=== PATIENT | male | born 1945 | race Caucasian/White ===

== ENCOUNTER → 2023-04-07 11:26 | Outpatient (REF) | payer MEDICARE, BC, SELFPAY ==
[2023-04-07 09:43] LABS: % Basophils 0.2 % (0-2); % Eosinophils 1.3 % (0-6); % Immature Granulocytes 0.2 % (0-0.5); % Lymphocytes 17.3 % (20.5-51.1); % Monocytes 9.1 % (1.7-9.3); % Neutrophils 71.9 % (42.2-75.2); Absolute Eosinophils 0.1 10^3/uL (0-0.7); Absolute Lymphocytes 0.9 10^3/uL (1.2-3.4); Absolute Monocytes 0.5 10^3/uL (0.1-0.6); Absolute Neutrophils 3.7 10^3/uL (1.4-6.5); Hematocrit 46.2 % (39.0-52.0); Hemoglobin 16.4 g/dL (13.0-18.0); Mean Corp Hgb Conc. 35.5 g/dL (33.0-37.0); Mean Corpuscular Hgb 34.1 pg (27.0-31.0); Mean Platelet Volume 10.9 fL (7.4-10.4); Nucleated Red Blood Cells % 0 % (-); Platelet Count 112 10^3/uL (130-400); Red Blood Cell Count 4.81 10^6/uL (4.70-6.10); White Blood Cell Count 5.2 10^3/uL (4.8-10.8)
[2023-04-07 09:56] LABS: ALT (SGPT) 30 U/L (0-50); AST (SGOT) 33 U/L (17-59); Albumin 4.2 g/dl (3.5-5.0); Alkaline Phosphatase 85 U/L (38-126); Blood Urea Nitrogen 21 mg/dl (9-20); Calcium 9.4 mg/dl (8.4-10.2); Carbon Dioxide 30 mmol/L (22-30); Chloride 101 mmol/L (98-107); Glucose 110 mg/dl (70-99); Potassium 3.7 mmol/L (3.5-5.1); Sodium 135 mmol/L (135-145); Total Protein 6.4 g/dl (6.3-8.2); eGFR > 60.00
[2023-04-07 16:24] LABS: IgG 941 mg/dl (700-1600); IgM 32 mg/dl (40-230)
[2023-04-10 02:47] LABS: IgA 26 mg/dL (68-408)
== END ==
LOC: OIDL 11:26
PROVIDERS: ATTENDING PHYSICIAN Nurse Practitioner Adult Health
DX: D69.6 Thrombocytopenia, unspecified (principal)
CPT/HCPCS: 80053; 82784; 85025

== ENCOUNTER → 2023-05-12 15:58 | Outpatient (REF) | payer MEDICARE, BC, SELFPAY ==
[2023-05-12 09:40] LABS: % Basophils 0.2 % (0-2); % Eosinophils 1.6 % (0-6); % Immature Granulocytes 0.2 % (0-0.5); % Monocytes 9.5 % (1.7-9.3); % Neutrophils 67.5 % (42.2-75.2); Absolute Eosinophils 0.1 10^3/uL (0-0.7); Absolute Lymphocytes 0.9 10^3/uL (1.2-3.4); Absolute Monocytes 0.4 10^3/uL (0.1-0.6); Hematocrit 46.6 % (39.0-52.0); Hemoglobin 16.3 g/dL (13.0-18.0); Mean Corpuscular Volume 94.3 fL (80.0-94.0); Mean Platelet Volume 10.3 fL (7.4-10.4); Nucleated Red Blood Cells % 0 % (-); Platelet Count 116 10^3/uL (130-400); Red Blood Cell Count 4.94 10^6/uL (4.70-6.10); Red Cell Dist. Width 13.7 % (11.5-14.5); White Blood Cell Count 4.4 10^3/uL (4.8-10.8)
[2023-05-12 09:58] LABS: ALT (SGPT) 33 U/L (0-50); AST (SGOT) 36 U/L (17-59); Albumin 4.6 g/dl (3.5-5.0); Alkaline Phosphatase 76 U/L (38-126); Blood Urea Nitrogen 19 mg/dl (9-20); Calcium 9.9 mg/dl (8.4-10.2); Carbon Dioxide 30 mmol/L (22-30); Chloride 97 mmol/L (98-107); Glucose 124 mg/dl (70-99); Potassium 3.6 mmol/L (3.5-5.1); Sodium 138 mmol/L (135-145); Total Bilirubin 2.9 mg/dl (0.2-1.3); Total Protein 6.7 g/dl (6.3-8.2); eGFR > 60.00
[2023-05-12 10:08] LABS: IgG 911 mg/dl (700-1600)
[2023-05-15 03:22] LABS: IgA 27 mg/dL (68-408); IgM 30 mg/dL (35-263)
== END ==
LOC: OIDL 15:58
PROVIDERS: ATTENDING PHYSICIAN Internal Medicine Hematology & Oncology
DX: D69.6 Thrombocytopenia, unspecified (principal)
CPT/HCPCS: 80053; 82784; 85025

== ENCOUNTER → 2023-06-04 13:11 | Outpatient (REF) | payer MEDICARE, BC, SELFPAY ==
[2023-06-04 16:26] LABS: % Basophils 0.2 % (0-2); % Eosinophils 1.5 % (0-6); % Immature Granulocytes 0.2 % (0-0.5); % Monocytes 11.9 % (1.7-9.3); % Neutrophils 73.2 % (42.2-75.2); Absolute Eosinophils 0.1 10^3/uL (0-0.7); Absolute Lymphocytes 0.7 10^3/uL (1.2-3.4); Absolute Monocytes 0.6 10^3/uL (0.1-0.6); Absolute Neutrophils 3.9 10^3/uL (1.4-6.5); Hematocrit 43.7 % (39.0-52.0); Hemoglobin 15.4 g/dL (13.0-18.0); Mean Corp Hgb Conc. 35.2 g/dL (33.0-37.0); Mean Corpuscular Hgb 33.9 pg (27.0-31.0); Mean Corpuscular Volume 96.3 fL (80.0-94.0); Mean Platelet Volume 10.8 fL (7.4-10.4); Nucleated Red Blood Cells % 0 % (-); Platelet Count 108 10^3/uL (130-400); Red Blood Cell Count 4.54 10^6/uL (4.70-6.10); Red Cell Dist. Width 13.3 % (11.5-14.5); White Blood Cell Count 5.3 10^3/uL (4.8-10.8)
[2023-06-04 16:28] LABS: ALT (SGPT) 32 U/L (0-50); AST (SGOT) 37 U/L (17-59); Albumin 4.5 g/dl (3.5-5.0); Alkaline Phosphatase 67 U/L (38-126); Blood Urea Nitrogen 16 mg/dl (9-20); Calcium 9.9 mg/dl (8.4-10.2); Carbon Dioxide 27 mmol/L (22-30); Chloride 99 mmol/L (98-107); Glucose 100 mg/dl (70-99); Potassium 4.2 mmol/L (3.5-5.1); Sodium 133 mmol/L (135-145); Total Bilirubin 2.4 mg/dl (0.2-1.3); Total Protein 6.9 g/dl (6.3-8.2); eGFR > 60.00
[2023-06-04 23:45] LABS: IgG 1052 mg/dl (700-1600)
[2023-06-05 00:19] LABS: IgA < 50 mg/dl (70-400); IgM 26 mg/dl (40-230)
== END ==
LOC: HWLAB 13:11
PROVIDERS: ATTENDING PHYSICIAN Nurse Practitioner Adult Health; FAMILY PHYSICIAN Nurse Practitioner Family
DX: D69.6 Thrombocytopenia, unspecified (principal); C83.07 Small cell B-cell lymphoma, spleen; R16.2 Hepatomegaly with splenomegaly, not elsewhere classified; D80.1 Nonfamilial hypogammaglobulinemia
CPT/HCPCS: 36415; 80053; 82784; 85025

== ENCOUNTER → 2023-06-06 11:02 | Outpatient (REF) | payer MEDICARE, BC, SELFPAY | LOC: RAD 11:02 | PROVIDERS: ATTENDING PHYSICIAN Internal Medicine Hematology & Oncology; FAMILY PHYSICIAN Nurse Practitioner Family | DX: D69.6 Thrombocytopenia, unspecified (principal); C83.07 Small cell B-cell lymphoma, spleen; R16.2 Hepatomegaly with splenomegaly, not elsewhere classified; D80.1 Nonfamilial hypogammaglobulinemia | CPT/HCPCS: 71046 ==

== ENCOUNTER → 2023-07-08 10:18 | Outpatient (REF) | payer MEDICARE, BC, SELFPAY ==
[2023-07-08 08:52] LABS: % Basophils 0.3 % (0-2); % Eosinophils 2.8 % (0-6); % Monocytes 9.4 % (1.7-9.3); % Neutrophils 66.5 % (42.2-75.2); Absolute Eosinophils 0.1 10^3/uL (0-0.7); Absolute Lymphocytes 0.8 10^3/uL (1.2-3.4); Absolute Monocytes 0.3 10^3/uL (0.1-0.6); Absolute Neutrophils 2.4 10^3/uL (1.4-6.5); Hematocrit 44.1 % (39.0-52.0); Hemoglobin 15.5 g/dL (13.0-18.0); Mean Corp Hgb Conc. 35.1 g/dL (33.0-37.0); Mean Corpuscular Hgb 33.9 pg (27.0-31.0); Mean Corpuscular Volume 96.5 fL (80.0-94.0); Mean Platelet Volume 9.4 fL (7.4-10.4); Platelet Count 101 10^3/uL (130-400); Red Blood Cell Count 4.57 10^6/uL (4.70-6.10); Red Cell Dist. Width 13.1 % (11.5-14.5); White Blood Cell Count 3.6 10^3/uL (4.8-10.8)
[2023-07-08 09:44] LABS: ALT (SGPT) 27 U/L (0-50); AST (SGOT) 30 U/L (17-59); Alkaline Phosphatase 86 U/L (38-126); Blood Urea Nitrogen 25 mg/dl (9-20); Calcium 9.7 mg/dl (8.4-10.2); Carbon Dioxide 29 mmol/L (22-30); Chloride 102 mmol/L (98-107); Glucose 126 mg/dl (70-99); Potassium 3.6 mmol/L (3.5-5.1); Sodium 140 mmol/L (135-145); Total Bilirubin 1.3 mg/dl (0.2-1.3); Total Protein 6.3 g/dl (6.3-8.2); eGFR > 60.00
[2023-07-10 05:50] LABS: IgG 944 mg/dl (700-1600); IgM 34 mg/dl (40-230)
== END ==
LOC: OIDL 10:18
PROVIDERS: ATTENDING PHYSICIAN Internal Medicine Hematology & Oncology
DX: D69.6 Thrombocytopenia, unspecified (principal)
CPT/HCPCS: 80053; 82784; 85025

== ENCOUNTER → 2023-08-14 16:09 | Outpatient (REF) | payer MEDICARE, BC, SELFPAY ==
[2023-08-14 09:30] LABS: % Basophils 0.2 % (0-2); % Eosinophils 1.4 % (0-6); % Immature Granulocytes 0.5 % (0-0.5); % Lymphocytes 22.1 % (20.5-51.1); % Monocytes 9.9 % (1.7-9.3); % Neutrophils 65.9 % (42.2-75.2); Absolute Eosinophils 0.1 10^3/uL (0-0.7); Absolute Monocytes 0.4 10^3/uL (0.1-0.6); Absolute Neutrophils 2.9 10^3/uL (1.4-6.5); Hematocrit 44.1 % (39.0-52.0); Hemoglobin 15.3 g/dL (13.0-18.0); Mean Corp Hgb Conc. 34.7 g/dL (33.0-37.0); Mean Corpuscular Hgb 33.9 pg (27.0-31.0); Mean Corpuscular Volume 97.8 fL (80.0-94.0); Mean Platelet Volume 10.1 fL (7.4-10.4); Platelet Count 105 10^3/uL (130-400); Red Blood Cell Count 4.51 10^6/uL (4.70-6.10); Red Cell Dist. Width 13.5 % (11.5-14.5); White Blood Cell Count 4.4 10^3/uL (4.8-10.8)
[2023-08-14 11:16] LABS: ALT (SGPT) 23 U/L (0-50); AST (SGOT) 34 U/L (17-59); Albumin 4.5 g/dl (3.5-5.0); Alkaline Phosphatase 82 U/L (38-126); Blood Urea Nitrogen 29 mg/dl (9-20); Calcium 9.8 mg/dl (8.4-10.2); Carbon Dioxide 25 mmol/L (22-30); Chloride 103 mmol/L (98-107); Glucose 118 mg/dl (70-99); Potassium 3.9 mmol/L (3.5-5.1); Sodium 139 mmol/L (135-145); Total Bilirubin 2.2 mg/dl (0.2-1.3); Total Protein 6.6 g/dl (6.3-8.2); eGFR > 60.00
[2023-08-14 11:27] LABS: IgG 1002 mg/dl (700-1600); IgM 29 mg/dl (40-230)
[2023-08-15 15:07] LABS: IgA 27 mg/dL (68-408)
== END ==
LOC: OIDL 16:09
PROVIDERS: ATTENDING PHYSICIAN Internal Medicine Hematology & Oncology
DX: D69.6 Thrombocytopenia, unspecified (principal)
CPT/HCPCS: 80053; 82784; 85025

== ENCOUNTER → 2023-08-27 11:10 | Outpatient (REF) | payer MEDICARE, BC, SELFPAY ==
[2023-08-27 15:34] LABS: % Basophils 0.2 % (0-2); % Eosinophils 1.2 % (0-6); % Immature Granulocytes 0.2 % (0-0.5); % Lymphocytes 19.4 % (20.5-51.1); % Monocytes 7.7 % (1.7-9.3); % Neutrophils 71.3 % (42.2-75.2); Absolute Eosinophils 0.1 10^3/uL (0-0.7); Absolute Monocytes 0.4 10^3/uL (0.1-0.6); Absolute Neutrophils 3.6 10^3/uL (1.4-6.5); Hematocrit 46.6 % (39.0-52.0); Hemoglobin 15.8 g/dL (13.0-18.0); Mean Corp Hgb Conc. 33.9 g/dL (33.0-37.0); Mean Corpuscular Hgb 33.1 pg (27.0-31.0); Mean Corpuscular Volume 97.5 fL (80.0-94.0); Mean Platelet Volume 10.7 fL (7.4-10.4); Nucleated Red Blood Cells % 0 % (-); Platelet Count 120 10^3/uL (130-400); Red Blood Cell Count 4.78 10^6/uL (4.70-6.10); Red Cell Dist. Width 13.1 % (11.5-14.5); White Blood Cell Count 5.1 10^3/uL (4.8-10.8)
[2023-08-27 15:41] LABS: ALT (SGPT) 25 U/L (0-50); AST (SGOT) 32 U/L (17-59); Albumin 4.5 g/dl (3.5-5.0); Alkaline Phosphatase 65 U/L (38-126); Blood Urea Nitrogen 19 mg/dl (9-20); Calcium 9.8 mg/dl (8.4-10.2); Carbon Dioxide 32 mmol/L (22-30); Chloride 98 mmol/L (98-107); Glucose 103 mg/dl (70-99); Potassium 4.1 mmol/L (3.5-5.1); Sodium 137 mmol/L (135-145); Total Bilirubin 2.6 mg/dl (0.2-1.3); eGFR > 60.00
[2023-08-27 16:09] LABS: PSA, Total - Diagnostic < 0.06 ng/ml (0.0-4.0)
[2023-08-28 01:12] LABS: IgG 1276 mg/dl (700-1600); IgM 27 mg/dl (40-230)
[2023-08-28 03:00] LABS: IgA < 50 mg/dl (70-400)
== END ==
LOC: HWLAB 11:10
PROVIDERS: ATTENDING PHYSICIAN Nurse Practitioner Adult Health; FAMILY PHYSICIAN Nurse Practitioner Family; REFERRING PHYSICIAN Specialist
DX: D69.6 Thrombocytopenia, unspecified (principal); C83.07 Small cell B-cell lymphoma, spleen; R16.2 Hepatomegaly with splenomegaly, not elsewhere classified; D80.1 Nonfamilial hypogammaglobulinemia; C61 Malignant neoplasm of prostate
CPT/HCPCS: 36415; 80053; 82784; 84153; 85025

== ENCOUNTER → 2023-09-30 12:59 | Outpatient (REF) | payer MEDICARE, BC, SELFPAY ==
[2023-09-30 15:42] LABS: ALT (SGPT) 29 U/L (0-50); AST (SGOT) 35 U/L (17-59); Albumin 4.7 g/dl (3.5-5.0); Alkaline Phosphatase 75 U/L (38-126); Blood Urea Nitrogen 24 mg/dl (9-20); Calcium 10.3 mg/dl (8.4-10.2); Carbon Dioxide 31 mmol/L (22-30); Chloride 100 mmol/L (98-107); Glucose 116 mg/dl (70-99); Potassium 4.8 mmol/L (3.5-5.1); Sodium 138 mmol/L (135-145); Total Bilirubin 2.1 mg/dl (0.2-1.3); Total Protein 7.1 g/dl (6.3-8.2); eGFR > 60.00
[2023-09-30 15:44] LABS: % Basophils 0.2 % (0-2); % Eosinophils 0.2 % (0-6); % Immature Granulocytes 0.3 % (0-0.5); % Lymphocytes 9.3 % (20.5-51.1); % Monocytes 2.6 % (1.7-9.3); % Neutrophils 87.4 % (42.2-75.2); Absolute Lymphocytes 0.5 10^3/uL (1.2-3.4); Absolute Monocytes 0.2 10^3/uL (0.1-0.6); Absolute Neutrophils 5.1 10^3/uL (1.4-6.5); Hemoglobin 16.8 g/dL (13.0-18.0); Mean Corp Hgb Conc. 35.7 g/dL (33.0-37.0); Mean Corpuscular Hgb 34.4 pg (27.0-31.0); Mean Corpuscular Volume 96.1 fL (80.0-94.0); Mean Platelet Volume 10.5 fL (7.4-10.4); Nucleated Red Blood Cells % 0 % (-); Platelet Count 117 10^3/uL (130-400); Red Blood Cell Count 4.89 10^6/uL (4.70-6.10); Red Cell Dist. Width 13.1 % (11.5-14.5); White Blood Cell Count 5.8 10^3/uL (4.8-10.8)
[2023-10-02 00:13] LABS: IgG 1216 mg/dl (700-1600); IgM 34 mg/dl (40-230)
[2023-10-02 00:18] LABS: IgA < 50 mg/dl (70-400)
== END ==
LOC: HWLAB 12:59
PROVIDERS: ATTENDING PHYSICIAN Nurse Practitioner Adult Health; FAMILY PHYSICIAN Nurse Practitioner Family
DX: D69.6 Thrombocytopenia, unspecified (principal); C83.07 Small cell B-cell lymphoma, spleen; R16.2 Hepatomegaly with splenomegaly, not elsewhere classified; D80.1 Nonfamilial hypogammaglobulinemia
CPT/HCPCS: 36415; 80053; 82784; 85025

== ENCOUNTER → 2023-11-07 14:32 | Outpatient (REF) | payer MEDICARE, BC, SELFPAY ==
[2023-11-07 10:33] LABS: % Basophils 0.4 % (0-2); % Eosinophils 1.4 % (0-6); % Immature Granulocytes 0.2 % (0-0.5); % Lymphocytes 24.4 % (20.5-51.1); % Monocytes 11.3 % (1.7-9.3); % Neutrophils 62.3 % (42.2-75.2); Absolute Eosinophils 0.1 10^3/uL (0-0.7); Absolute Lymphocytes 1.2 10^3/uL (1.2-3.4); Absolute Monocytes 0.6 10^3/uL (0.1-0.6); Hematocrit 44.2 % (39.0-52.0); Hemoglobin 15.7 g/dL (13.0-18.0); Mean Corp Hgb Conc. 35.5 g/dL (33.0-37.0); Mean Corpuscular Hgb 33.1 pg (27.0-31.0); Mean Corpuscular Volume 93.2 fL (80.0-94.0); Mean Platelet Volume 10.8 fL (7.4-10.4); Nucleated Red Blood Cells % 0 % (-); Platelet Count 115 10^3/uL (130-400); Red Blood Cell Count 4.74 10^6/uL (4.70-6.10); Red Cell Dist. Width 13.4 % (11.5-14.5); White Blood Cell Count 4.9 10^3/uL (4.8-10.8)
[2023-11-07 10:36] LABS: ALT (SGPT) 22 U/L (0-50); AST (SGOT) 27 U/L (17-59); Albumin 4.3 g/dl (3.5-5.0); Alkaline Phosphatase 67 U/L (38-126); Blood Urea Nitrogen 25 mg/dl (9-20); Carbon Dioxide 28 mmol/L (22-30); Chloride 103 mmol/L (98-107); Glucose 107 mg/dl (70-99); Potassium 3.9 mmol/L (3.5-5.1); Sodium 141 mmol/L (135-145); Total Bilirubin 2.1 mg/dl (0.2-1.3); Total Protein 6.4 g/dl (6.3-8.2); eGFR > 60.00
[2023-11-09 23:05] LABS: IgG 980 mg/dl (700-1600); IgM 30 mg/dl (40-230)
[2023-11-09 23:08] LABS: IgA < 50 mg/dl (70-400)
== END ==
LOC: OIDL 14:32
PROVIDERS: ATTENDING PHYSICIAN Internal Medicine Hematology & Oncology
DX: D69.6 Thrombocytopenia, unspecified (principal)
CPT/HCPCS: 80053; 82784; 85025

== ENCOUNTER → 2023-12-05 11:13 | Outpatient (REF) | payer MEDICARE, BC, SELFPAY ==
[2023-12-05 10:25] LABS: % Basophils 0.2 % (0-2); % Immature Granulocytes 0.3 % (0-0.5); % Lymphocytes 18.5 % (20.5-51.1); % Monocytes 8.3 % (1.7-9.3); % Neutrophils 71.7 % (42.2-75.2); Absolute Eosinophils 0.1 10^3/uL (0-0.7); Absolute Lymphocytes 1.1 10^3/uL (1.2-3.4); Absolute Monocytes 0.5 10^3/uL (0.1-0.6); Absolute Neutrophils 4.4 10^3/uL (1.4-6.5); Hematocrit 41.5 % (39.0-52.0); Hemoglobin 14.7 g/dL (13.0-18.0); Mean Corp Hgb Conc. 35.4 g/dL (33.0-37.0); Mean Corpuscular Hgb 32.7 pg (27.0-31.0); Mean Corpuscular Volume 92.4 fL (80.0-94.0); Mean Platelet Volume 10.7 fL (7.4-10.4); Nucleated Red Blood Cells % 0 % (-); Platelet Count 118 10^3/uL (130-400); Red Blood Cell Count 4.49 10^6/uL (4.70-6.10); Red Cell Dist. Width 13.2 % (11.5-14.5); White Blood Cell Count 6.1 10^3/uL (4.8-10.8)
[2023-12-05 10:35] LABS: ALT (SGPT) 38 U/L (0-50); AST (SGOT) 35 U/L (17-59); Albumin 4.3 g/dl (3.5-5.0); Alkaline Phosphatase 73 U/L (38-126); Blood Urea Nitrogen 23 mg/dl (9-20); Calcium 9.9 mg/dl (8.4-10.2); Carbon Dioxide 31 mmol/L (22-30); Chloride 101 mmol/L (98-107); Glucose 116 mg/dl (70-99); Potassium 3.9 mmol/L (3.5-5.1); Sodium 143 mmol/L (135-145); Total Bilirubin 2.1 mg/dl (0.2-1.3); Total Protein 6.4 g/dl (6.3-8.2); eGFR > 60.00
[2023-12-07 23:44] LABS: IgG 1025 mg/dl (700-1600); IgM 30 mg/dl (40-230)
[2023-12-08 00:09] LABS: IgA < 50 mg/dl (70-400)
== END ==
LOC: OIDL 11:13
PROVIDERS: ATTENDING PHYSICIAN Internal Medicine Hematology & Oncology
DX: D69.6 Thrombocytopenia, unspecified (principal); C83.07 Small cell B-cell lymphoma, spleen; R16.2 Hepatomegaly with splenomegaly, not elsewhere classified; D80.1 Nonfamilial hypogammaglobulinemia
CPT/HCPCS: 80053; 82784; 85025

== ENCOUNTER → 2024-01-02 10:31 | Outpatient (REF) | payer MEDICARE, BC, SELFPAY ==
[2024-01-02 10:57] LABS: % Basophils 0.2 % (0-2); % Eosinophils 1.4 % (0-6); % Immature Granulocytes 0.2 % (0-0.5); % Lymphocytes 28.1 % (20.5-51.1); % Monocytes 9.5 % (1.7-9.3); % Neutrophils 60.6 % (42.2-75.2); Absolute Eosinophils 0.1 10^3/uL (0-0.7); Absolute Lymphocytes 1.2 10^3/uL (1.2-3.4); Absolute Monocytes 0.4 10^3/uL (0.1-0.6); Absolute Neutrophils 2.5 10^3/uL (1.4-6.5); Hematocrit 43.6 % (39.0-52.0); Hemoglobin 15.1 g/dL (13.0-18.0); Mean Corp Hgb Conc. 34.6 g/dL (33.0-37.0); Mean Corpuscular Volume 95.2 fL (80.0-94.0); Mean Platelet Volume 10.7 fL (7.4-10.4); Nucleated Red Blood Cells % 0 % (-); Platelet Count 107 10^3/uL (130-400); Red Blood Cell Count 4.58 10^6/uL (4.70-6.10); Red Cell Dist. Width 13.6 % (11.5-14.5); White Blood Cell Count 4.2 10^3/uL (4.8-10.8)
[2024-01-02 11:21] LABS: ALT (SGPT) 28 U/L (0-50); AST (SGOT) 33 U/L (17-59); Albumin 4.5 g/dl (3.5-5.0); Alkaline Phosphatase 56 U/L (38-126); Blood Urea Nitrogen 32 mg/dl (9-20); Calcium 9.7 mg/dl (8.4-10.2); Carbon Dioxide 27 mmol/L (22-30); Chloride 102 mmol/L (98-107); Glucose 132 mg/dl (70-99); Sodium 143 mmol/L (135-145); Total Bilirubin 2.8 mg/dl (0.2-1.3); Total Protein 6.7 g/dl (6.3-8.2); eGFR > 60.00
[2024-01-04 23:16] LABS: IgG 1010 mg/dl (700-1600); IgM 27 mg/dl (40-230)
[2024-01-05 00:28] LABS: IgA < 50 mg/dl (70-400)
== END ==
LOC: OIDL 10:31
PROVIDERS: ATTENDING PHYSICIAN Internal Medicine Hematology & Oncology
DX: D69.6 Thrombocytopenia, unspecified (principal); C83.07 Small cell B-cell lymphoma, spleen; R16.2 Hepatomegaly with splenomegaly, not elsewhere classified; D80.1 Nonfamilial hypogammaglobulinemia
CPT/HCPCS: 80053; 82784; 85025

== ENCOUNTER → 2024-02-27 14:36 | Outpatient (REF) | payer MEDICARE, BC, SELFPAY ==
[2024-02-27 10:17] LABS: % Basophils 0.2 % (0-2); % Eosinophils 1.4 % (0-6); % Immature Granulocytes 0.2 % (0-0.5); % Lymphocytes 27.1 % (20.5-51.1); % Neutrophils 60.1 % (42.2-75.2); Absolute Eosinophils 0.1 10^3/uL (0-0.7); Absolute Lymphocytes 1.2 10^3/uL (1.2-3.4); Absolute Monocytes 0.5 10^3/uL (0.1-0.6); Absolute Neutrophils 2.6 10^3/uL (1.4-6.5); Hematocrit 43.7 % (39.0-52.0); Mean Corp Hgb Conc. 34.3 g/dL (33.0-37.0); Mean Corpuscular Hgb 33.3 pg (27.0-31.0); Mean Corpuscular Volume 97.1 fL (80.0-94.0); Mean Platelet Volume 9.8 fL (7.4-10.4); Platelet Count 108 10^3/uL (130-400); Red Cell Dist. Width 13.7 % (11.5-14.5); White Blood Cell Count 4.3 10^3/uL (4.8-10.8)
[2024-02-27 11:22] LABS: PSA, Total - Diagnostic < 0.06 ng/ml (0.0-4.0)
[2024-02-27 11:31] LABS: ALT (SGPT) 30 U/L (0-50); AST (SGOT) 32 U/L (17-59); Albumin 4.6 g/dl (3.5-5.0); Alkaline Phosphatase 72 U/L (38-126); Blood Urea Nitrogen 23 mg/dl (9-20); Calcium 9.8 mg/dl (8.4-10.2); Carbon Dioxide 29 mmol/L (22-30); Chloride 99 mmol/L (98-107); Glucose 113 mg/dl (70-99); Potassium 3.7 mmol/L (3.5-5.1); Sodium 139 mmol/L (135-145); Total Bilirubin 2.7 mg/dl (0.2-1.3); Total Protein 6.9 g/dl (6.3-8.2); eGFR > 60.00
[2024-02-29 23:20] LABS: IgG 972 mg/dl (700-1600); IgM 28 mg/dl (40-230)
== END ==
LOC: OIDL 14:36
PROVIDERS: ATTENDING PHYSICIAN Internal Medicine Hematology & Oncology
DX: D69.6 Thrombocytopenia, unspecified (principal); N42.9 Disorder of prostate, unspecified
CPT/HCPCS: 80053; 82784; 84153; 85025

== ENCOUNTER → 2024-03-26 10:09 | Outpatient (REF) | payer OTHER, SELFPAY ==
[2024-03-26 10:50] LABS: % Eosinophils 0.7 % (0-6); % Immature Granulocytes 0.2 % (0-0.5); % Lymphocytes 30.6 % (20.5-51.1); % Monocytes 11.4 % (1.7-9.3); % Neutrophils 57.1 % (42.2-75.2); Absolute Lymphocytes 1.4 10^3/uL (1.2-3.4); Absolute Monocytes 0.5 10^3/uL (0.1-0.6); Absolute Neutrophils 2.6 10^3/uL (1.4-6.5); Hematocrit 42.7 % (39.0-52.0); Hemoglobin 14.9 g/dL (13.0-18.0); Mean Corp Hgb Conc. 34.9 g/dL (33.0-37.0); Mean Corpuscular Hgb 33.1 pg (27.0-31.0); Mean Corpuscular Volume 94.9 fL (80.0-94.0); Mean Platelet Volume 10.2 fL (7.4-10.4); Platelet Count 116 10^3/uL (130-400); Red Cell Dist. Width 13.5 % (11.5-14.5); White Blood Cell Count 4.5 10^3/uL (4.8-10.8)
[2024-03-26 11:46] LABS: ALT (SGPT) 25 U/L (0-50); AST (SGOT) 29 U/L (17-59); Albumin 4.4 g/dl (3.5-5.0); Alkaline Phosphatase 74 U/L (38-126); Blood Urea Nitrogen 30 mg/dl (9-20); Calcium 9.9 mg/dl (8.4-10.2); Carbon Dioxide 28 mmol/L (22-30); Chloride 100 mmol/L (98-107); Glucose 119 mg/dl (70-99); Potassium 3.7 mmol/L (3.5-5.1); Sodium 138 mmol/L (135-145); Total Bilirubin 2.4 mg/dl (0.2-1.3); Total Protein 6.3 g/dl (6.3-8.2); eGFR > 60.00
== END ==
LOC: OIDL 10:09
PROVIDERS: ATTENDING PHYSICIAN Internal Medicine Hematology & Oncology
DX: D69.6 Thrombocytopenia, unspecified (principal); C83.07 Small cell B-cell lymphoma, spleen
CPT/HCPCS: 80053; 82784; 85025

== ENCOUNTER → 2024-04-23 11:54 | Outpatient (REF) | payer OTHER, SELFPAY ==
[2024-04-23 10:22] LABS: % Basophils 0.2 % (0-2); % Eosinophils 1.3 % (0-6); % Lymphocytes 29.9 % (20.5-51.1); % Neutrophils 59.6 % (42.2-75.2); Absolute Eosinophils 0.1 10^3/uL (0-0.7); Absolute Lymphocytes 1.4 10^3/uL (1.2-3.4); Absolute Monocytes 0.4 10^3/uL (0.1-0.6); Absolute Neutrophils 2.9 10^3/uL (1.4-6.5); Hematocrit 43.1 % (39.0-52.0); Hemoglobin 15.1 g/dL (13.0-18.0); Mean Corpuscular Hgb 33.3 pg (27.0-31.0); Mean Corpuscular Volume 95.1 fL (80.0-94.0); Mean Platelet Volume 10.1 fL (7.4-10.4); Platelet Count 91 10^3/uL (130-400); Red Blood Cell Count 4.53 10^6/uL (4.70-6.10); Red Cell Dist. Width 13.7 % (11.5-14.5); White Blood Cell Count 4.8 10^3/uL (4.8-10.8)
[2024-04-23 11:09] LABS: ALT (SGPT) 27 U/L (0-50); AST (SGOT) 31 U/L (17-59); Albumin 4.1 g/dl (3.5-5.0); Alkaline Phosphatase 67 U/L (38-126); Blood Urea Nitrogen 19 mg/dl (9-20); Calcium 9.8 mg/dl (8.4-10.2); Carbon Dioxide 30 mmol/L (22-30); Chloride 100 mmol/L (98-107); Glucose 91 mg/dl (70-99); Potassium 3.8 mmol/L (3.5-5.1); Sodium 137 mmol/L (135-145); Total Bilirubin 1.6 mg/dl (0.2-1.3); Total Protein 6.4 g/dl (6.3-8.2); eGFR > 60.00
[2024-04-25 23:35] LABS: IgG 968 mg/dl (700-1600); IgM 25 mg/dl (40-230)
== END ==
LOC: OIDL 11:54
PROVIDERS: ATTENDING PHYSICIAN Internal Medicine Hematology & Oncology
DX: D69.6 Thrombocytopenia, unspecified (principal); C83.07 Small cell B-cell lymphoma, spleen; R16.2 Hepatomegaly with splenomegaly, not elsewhere classified; D80.1 Nonfamilial hypogammaglobulinemia
CPT/HCPCS: 80053; 82784; 85025

== ENCOUNTER → 2024-05-27 10:52 | Outpatient (REF) | payer OTHER, SELFPAY ==
[2024-05-27 10:29] LABS: % Basophils 0.3 % (0-2); % Eosinophils 1.1 % (0-6); % Lymphocytes 30.7 % (20.5-51.1); % Monocytes 11.6 % (1.7-9.3); % Neutrophils 56.3 % (42.2-75.2); Absolute Lymphocytes 1.2 10^3/uL (1.2-3.4); Absolute Monocytes 0.4 10^3/uL (0.1-0.6); Absolute Neutrophils 2.1 10^3/uL (1.4-6.5); Hematocrit 42.7 % (39.0-52.0); Hemoglobin 14.7 g/dL (13.0-18.0); Mean Corp Hgb Conc. 34.4 g/dL (33.0-37.0); Mean Corpuscular Hgb 32.6 pg (27.0-31.0); Mean Corpuscular Volume 94.7 fL (80.0-94.0); Mean Platelet Volume 9.5 fL (7.4-10.4); Platelet Count 101 10^3/uL (130-400); Red Blood Cell Count 4.51 10^6/uL (4.70-6.10); Red Cell Dist. Width 14.3 % (11.5-14.5); White Blood Cell Count 3.8 10^3/uL (4.8-10.8)
[2024-05-27 11:22] LABS: ALT (SGPT) 35 U/L (0-50); AST (SGOT) 38 U/L (17-59); Albumin 4.1 g/dl (3.5-5.0); Alkaline Phosphatase 70 U/L (38-126); Blood Urea Nitrogen 22 mg/dl (9-20); Carbon Dioxide 32 mmol/L (22-30); Chloride 102 mmol/L (98-107); Glucose 115 mg/dl (70-99); Potassium 4.1 mmol/L (3.5-5.1); Sodium 140 mmol/L (135-145); Total Bilirubin 2.2 mg/dl (0.2-1.3); Total Protein 6.2 g/dl (6.3-8.2); eGFR > 60.00
[2024-05-27 11:29] LABS: IgG 1015 mg/dl (700-1600)
[2024-05-27 11:41] LABS: IgA < 40 mg/dl (70-400)
== END ==
LOC: OIDL 10:52
PROVIDERS: ATTENDING PHYSICIAN Internal Medicine Hematology & Oncology
DX: D69.6 Thrombocytopenia, unspecified (principal); C83.07 Small cell B-cell lymphoma, spleen; R16.2 Hepatomegaly with splenomegaly, not elsewhere classified; D80.1 Nonfamilial hypogammaglobulinemia
CPT/HCPCS: 80053; 82784; 85025

== ENCOUNTER 2024-05-31 06:19 | Day surgery (SDC) | payer OTHER, SELFPAY ==
[2024-05-05 11:43] LABS: ALT (SGPT) 24 U/L (0-50); AST (SGOT) 28 U/L (17-59); Albumin 4.3 g/dl (3.5-5.0); Alkaline Phosphatase 69 U/L (38-126); Blood Urea Nitrogen 23 mg/dl (9-20); Calcium 10.2 mg/dl (8.4-10.2); Carbon Dioxide 31 mmol/L (22-30); Chloride 98 mmol/L (98-107); Glucose 102 mg/dl (70-99); Potassium 4.3 mmol/L (3.5-5.1); Sodium 137 mmol/L (135-145); Total Protein 6.9 g/dl (6.3-8.2); eGFR > 60.00
[2024-05-05 11:49] LABS: Hematocrit 45.7 % (39.0-52.0); Hemoglobin 15.9 g/dL (13.0-18.0); Mean Corp Hgb Conc. 34.8 g/dL (33.0-37.0); Mean Corpuscular Hgb 32.6 pg (27.0-31.0); Mean Corpuscular Volume 93.8 fL (80.0-94.0); Mean Platelet Volume 10.1 fL (7.4-10.4); Platelet Count 133 10^3/uL (130-400); Red Blood Cell Count 4.87 10^6/uL (4.70-6.10); Red Cell Dist. Width 13.1 % (11.5-14.5); White Blood Cell Count 5.7 10^3/uL (4.8-10.8)
[2024-05-05 12:03] LABS: Glycohemoglobin (HgbA1c) 4.5 % (4.0-5.6)
[2024-05-05 14:07] VITALS: BMI 28.2
[2024-05-25 11:57] VITALS: BMI 28.2
[2024-05-31] VITALS (16 sets, daily range): BP systolic 100–149; BP diastolic 57–95; PULSE 83; O2SAT 89
[2024-05-31] MEDS: MOBIC 15 MG PO (08:25)
[2024-05-31] MEDS: TYLENOL 650 MG PO ×4 (08:25→21:13)
[2024-05-31] MEDS: NORMOSOL-R/PLASMALYTE-A 1000 IV ×2 (08:26→12:03)
--- NOTE | 2024-05-31 10:08 | W.PN.UPDATE ---
Update Note
Progress Note Update
R TKA 05/31/24
DVT ppx-ASA
Hx post-op hypoxemia
B cell pulmonary lymphoma
Asthma-mild intermittent
-standing order nebs, Decadron, incentive spirometry-minimize opioids
Hx post-op [id number] with parameter, minimize opioids
--- NOTE | 2024-05-31 10:29 | W.DS.TRANS ---
DC Summary - [employer]
-
Discharge Instructions:
Sleep Apnea Risk High
Discharge Diagnosis/Procedures R TKA 05/31/24
Diet As tolerated
Activity With Walker
Driving Restrictions No driving
Bathing Restrictions OK to Shower
Other Services PT
Instructions:
Stand-Alone Forms: Total Hip/Knee Replacement D/C
Changes to Home Medications: Yes
Discharge Medications:
DC Medications w/original date entered in [facility]
ascorbic acid (vitamin C) 500 mg tablet (Vitamin C) 1,000 mg PO BID Supplement 02/12/21
hydrochlorothiazide 25 mg tablet 25 mg PO DAILY 08/22/22
multivitamin 1 tab PO DAILY 08/22/22
olmesartan 40 mg tablet 40 mg PO DAILY 08/22/22
acalabrutinib 100 mg capsule (Calquence) 100 mg PO Q12H 05/04/24
mupirocin 2 % topical ointment 1 applic intranasal BID #1 tube 05/05/24
carvedilol 12.5 mg tablet 12.5 mg PO BID 05/12/24
Saccharomyces boulardii 250 mg capsule (Florastor) 250 mg PO BID #1 cap 05/31/24
acetaminophen 500 mg tablet 1,000 mg (2 x 500 mg) PO QID #0 tabs 05/31/24
aspirin 325 mg tablet 325 mg PO DAILY blood clot prevention #1 tab 05/31/24
cefadroxil 500 mg capsule 500 mg PO BID infection prevention #14 caps 05/31/24
docusate sodium 100 mg capsule (Colace) 100 mg PO BID stool softner #1 cap 05/31/24
famotidine 20 mg tablet 20 mg PO HS GI prophylaxis #30 tabs 05/31/24
gabapentin 300 mg capsule 300 mg PO HS sleep/pain #10 caps 05/31/24
magnesium hydroxide 400 mg/5 mL oral suspension (Milk of Magnesia) 30 ml PO HS PRN Constipation #1 mL 05/31/24
meloxicam 15 mg tablet 15 mg PO DAILY anti-inflammatory #14 tabs 05/31/24
prednisone 10 mg tablet 40 mg (4 x 10 mg) PO TAPER inflammation #20 tabs 05/31/24
tramadol 50 mg tablet 50 mg PO Q6H PRN 1 tab moderate pain, 2 if severe #30 tabs 05/31/24
Home Medication Changes
Saccharomyces boulardii 250 mg capsule (Florastor) 250 mg PO BID #1 cap 05/31/24
acetaminophen 500 mg tablet 1,000 mg (2 x 500 mg) PO QID #0 tabs 05/31/24
aspirin 325 mg tablet 325 mg PO DAILY blood clot prevention #1 tab 05/31/24
cefadroxil 500 mg capsule 500 mg PO BID infection prevention #14 caps 05/31/24
docusate sodium 100 mg capsule (Colace) 100 mg PO BID stool softner #1 cap 05/31/24
famotidine 20 mg tablet 20 mg PO HS GI prophylaxis #30 tabs 05/31/24
gabapentin 300 mg capsule 300 mg PO HS sleep/pain #10 caps 05/31/24
magnesium hydroxide 400 mg/5 mL oral suspension (Milk of Magnesia) 30 ml PO HS PRN Constipation #1 mL 05/31/24
meloxicam 15 mg tablet 15 mg PO DAILY anti-inflammatory #14 tabs 05/31/24
prednisone 10 mg tablet 40 mg (4 x 10 mg) PO TAPER inflammation #20 tabs 05/31/24
tramadol 50 mg tablet 50 mg PO Q6H PRN 1 tab moderate pain, 2 if severe #30 tabs 05/31/24
Pending Results: No
[2024-05-31] MEDS: ULTRAM 50 MG PO ×3 (12:03→21:13)
--- NOTE | 2024-05-31 13:18 | PTCARENOTE ---
Patient admitted from PACU for a right total knee replacement.He is alert and oriented .The patient rates his pain at a 4to a 5 out of 10.He received Tramadol 50mg in the PACU.Neurovascular assessment is within normal limits and ongoing.He does
still have decreased sensation on b/l calves.The Mepilex dressing is intact without drainage.The patient is in his bed with the call valencia in reach.
[2024-05-31] MEDS: DUONEB 3 ML INH ×2 (13:56→20:26)
--- NOTE | 2024-05-31 14:36 | CM ---
CM reviewed medical records. Plan for outpatient PT at [facility]. CM will pend further discharge planning while awaiting PT evaluations.
--- NOTE | 2024-05-31 14:37 | VNURNOTE ---
Chart reviewed with international coordinator Bibi Jolly Per Pre-op notes and DC summary, plan is for outpt PT on 06/03.
[2024-05-31] MEDS: ProAmatine 2.5 MG PO ×2 (15:22→17:25)
[2024-05-31] MEDS: ANCEF 5 IV (16:16)
[2024-05-31] MEDS: ASPIRIN 325 MG PO (17:25)
[2024-05-31 19:19] LABS: Hepatitis C Antibody Negative (Negative)
[2024-05-31] MEDS: BACTROBAN 2% OINTMENT 1 APPLIC NASAL (21:10)
[2024-05-31] MEDS: COLACE 100 MG PO (21:13)
[2024-05-31] MEDS: PEPCID 20 MG PO (21:19)
[2024-05-31] MEDS: NEURONTIN 300 MG PO (21:19)
[2024-05-31] MEDS: TORADOL 15 MG IV (21:22)
[2024-05-31] MEDS: DECADRON 4 MG IV (21:22)
[2024-05-31] MEDS: SENOKOT PO (21:32)
[2024-06-01] VITALS (8 sets, daily range): BP systolic 90–140; BP diastolic 56–81; PULSE 88–106; O2SAT 89
[2024-06-01] MEDS: ANCEF 5 IV (01:02)
[2024-06-01] MEDS: TYLENOL 650 MG PO ×3 (01:02→12:29)
[2024-06-01] MEDS: MELATONIN 5 MG PO (02:28)
[2024-06-01] MEDS: TYLENOL PO (05:05)
[2024-06-01] MEDS: DUONEB 3 ML INH (07:22)
--- NOTE | 2024-06-01 08:16 | W.PN.ORTHO ---
Today's Communication / Plan
-
d/c if mod I RW w/PT/OT, O2 sats stable, no orthostasis
Assessment
.
Distal Motor Intact: Yes
Dressing:
Clean, dry and intact.
Assessment:
Hx post-op hypoxemia
B cell pulmonary lymphoma
Asthma-mild intermittent
-standing order nebs, Decadron, incentive spirometry--nurse to check O2sats while standing with full lung expansion following IS
Hx post-op [id number] with parameter, minimize opioids-BP stable
Plan
.
Surgery / Date: R TKA 05/31/24
DVT Prophylaxis: Aspirin
Activity:
Out of bed.
PT/OT
Discharge Plan: Home w/ Outpatient PT
Subjective
.
.:
Patient resting comfortably.
Vital Signs and Labs
.
Vital Signs and Labs:
Lab Results
05/05/24 11:03
05/05/24 11:03
Temp Pulse Resp BP Pulse Ox
97.6 F 97 16 123/74 91
06/01/24 03:36 06/01/24 03:36 06/01/24 07:25 06/01/24 03:36 06/01/24 07:25
Physical Exam
-
HEENT: No pallor, cyanosis, or jaundice. Throat clear.
NECK: Supple. No JVD.
RESPIRATORY: Lungs clear to auscultation.
CVS: S1, S2 normal. RRR.� No murmur, rub or gallop.
ABDOMEN: Soft, non-tender. No distension. BS+/normal.
EXTREMITIES: strength equal, no calf pain with palpation
BOOK PACKER: AOx3. No focal deficits. housing officer grossly intact
[2024-06-01] MEDS: BACTROBAN 2% OINTMENT 1 APPLIC NASAL (08:55)
[2024-06-01] MEDS: ASPIRIN 325 MG PO (08:55)
--- NOTE | 2024-06-01 08:55 | CM ---
CM met with patient in room. Patient confirmed demographics. Patient lives independently with . Patient reports a history of VN, but is not currently on service. Patient denies a history of SNF. Patient stated that he 'has a ton' of DME in the
home. Patient specifically reports walker, grab bars, cane, and raised toilet seat.
Patient stated that he has a physical therapy appointment with [facility] on 06/02.
Patient's and son will be available for assistance and transportation.
PT/OT recommendations are pending.
PLAN: Home with outpatient PT.
[2024-06-01] MEDS: COLACE 100 MG PO (08:56)
[2024-06-01] MEDS: TORADOL 15 MG IV (08:57)
[2024-06-01] MEDS: DECADRON 4 MG IV (08:57)
[2024-06-01] MEDS: MOBIC 15 MG PO (08:58)
[2024-06-01] MEDS: SENOKOT 17.2 MG PO (08:58)
[2024-06-01] MEDS: ULTRAM 50 MG PO (08:59)
[2024-06-01] MEDS: ProAmatine PO (09:16)
[2024-06-01] MEDS: ProAmatine 5 MG PO ×2 (09:40→12:33)
== END 2024-06-01 16:47 | disposition home or self-care (01) ==
LOC: SDS 06:19
PROVIDERS: ATTENDING PHYSICIAN Specialist; FAMILY PHYSICIAN Nurse Practitioner Family; OTHER PHYSICIAN Physician Assistant; REFERRING PHYSICIAN Student in an Organized Health Care Education/Training Program
DX: M17.11 Unilateral primary osteoarthritis, right knee (principal); D69.6 Thrombocytopenia, unspecified
CPT/HCPCS: 27447; 36415; 71046; 73560; 80053; 83036; 85027; 86803; 87070; 94640; 97110; 97116; 97162; 97166; 97530; 97535; C1713; C1776

== ENCOUNTER → 2024-06-15 11:18 | Outpatient (REF) | payer OTHER, SELFPAY | LOC: RAD 11:18 | PROVIDERS: ATTENDING PHYSICIAN Internal Medicine Hematology & Oncology; FAMILY PHYSICIAN Nurse Practitioner Family | DX: D69.6 Thrombocytopenia, unspecified (principal); C83.07 Small cell B-cell lymphoma, spleen; R16.2 Hepatomegaly with splenomegaly, not elsewhere classified; D80.1 Nonfamilial hypogammaglobulinemia | CPT/HCPCS: 71260; Q9967 ==

== ENCOUNTER → 2024-06-24 11:45 | Outpatient (REF) | payer OTHER, SELFPAY ==
[2024-06-24 12:21] LABS: % Basophils 0.2 % (0-2); % Eosinophils 1.9 % (0-6); % Immature Granulocytes 0.2 % (0-0.5); % Monocytes 9.3 % (1.7-9.3); % Neutrophils 60.4 % (42.2-75.2); Absolute Eosinophils 0.1 10^3/uL (0-0.7); Absolute Lymphocytes 1.2 10^3/uL (1.2-3.4); Absolute Monocytes 0.4 10^3/uL (0.1-0.6); Absolute Neutrophils 2.5 10^3/uL (1.4-6.5); Hematocrit 37.6 % (39.0-52.0); Hemoglobin 12.8 g/dL (13.0-18.0); Mean Corpuscular Hgb 32.2 pg (27.0-31.0); Mean Corpuscular Volume 94.5 fL (80.0-94.0); Mean Platelet Volume 10.4 fL (7.4-10.4); Nucleated Red Blood Cells % 0 % (-); Platelet Count 133 10^3/uL (130-400); Red Blood Cell Count 3.98 10^6/uL (4.70-6.10); Red Cell Dist. Width 15.2 % (11.5-14.5); White Blood Cell Count 4.2 10^3/uL (4.8-10.8)
[2024-06-24 12:29] LABS: ALT (SGPT) 27 U/L (0-50); AST (SGOT) 28 U/L (17-59); Albumin 4.4 g/dl (3.5-5.0); Alkaline Phosphatase 67 U/L (38-126); Blood Urea Nitrogen 24 mg/dl (9-20); Carbon Dioxide 30 mmol/L (22-30); Chloride 103 mmol/L (98-107); Glucose 89 mg/dl (70-99); Potassium 4.2 mmol/L (3.5-5.1); Sodium 140 mmol/L (135-145); Total Bilirubin 2.2 mg/dl (0.2-1.3); Total Protein 6.5 g/dl (6.3-8.2); eGFR > 60.00
== END ==
LOC: OIDL 11:45
PROVIDERS: ATTENDING PHYSICIAN Internal Medicine Hematology & Oncology
DX: D69.6 Thrombocytopenia, unspecified (principal); C83.07 Small cell B-cell lymphoma, spleen
CPT/HCPCS: 80053; 85025

== ENCOUNTER 2024-07-21 16:02 | Day surgery (SDC) | payer OTHER, SELFPAY ==
[2024-07-21 15:40] VITALS: BP 103/54
[2024-07-21 16:00] VITALS: BP 110/53
--- NOTE | 2024-07-21 16:07 | DOWNTIME ---
There was a [employer] Client Passenger Interline Clerk Downtime on 07/21/2024 from 1230 to 07/21/2024 at 1550. Downtime documentation of patient's care, including medication administrations, has been reconciled in the electronic record per guidelines. Refer to the
patient's paper chart under the miscellaneous tab to see printed paper medication records and downtime forms.
[2024-07-21 16:20] VITALS: BP 119/64
== END 2024-07-21 16:27 | disposition home or self-care (01) ==
LOC: SDS 16:02
PROVIDERS: ATTENDING PHYSICIAN Internal Medicine Critical Care Medicine
DX: R91.8 Other nonspecific abnormal finding of lung field (principal); R59.1 Generalized enlarged lymph nodes
CPT/HCPCS: 31629; 31654; 88173; 88305; 88312; 87015; 87070; 87102; 87116; 87205

== ENCOUNTER → 2024-09-10 10:36 | Outpatient (REF) | payer OTHER, SELFPAY ==
[2024-09-10 15:38] LABS: ALT (SGPT) 26 U/L (0-50); AST (SGOT) 38 U/L (17-59); Albumin 4.3 g/dl (3.5-5.0); Alkaline Phosphatase 62 U/L (38-126); Blood Urea Nitrogen 22 mg/dl (9-20); Calcium 10.0 mg/dl (8.4-10.2); Carbon Dioxide 27 mmol/L (22-30); Chloride 103 mmol/L (98-107); Glucose 94 mg/dl (70-99); Potassium 4.0 mmol/L (3.5-5.1); Sodium 136 mmol/L (135-145); Total Protein 6.7 g/dl (6.3-8.2); eGFR > 60.00
[2024-09-10 15:54] LABS: Hematocrit 38.2 % (39.0-52.0); Hemoglobin 13.0 g/dL (13.0-18.0); Mean Corp Hgb Conc. 34.0 g/dL (33.0-37.0); Mean Corpuscular Volume 92.0 fL (80.0-94.0); Nucleated Red Blood Cells % 0 % (-); Red Cell Dist. Width 13.5 % (11.5-14.5)
[2024-09-10 16:22] LABS: Platelet Count 97 10^3/uL (130-400)
== END ==
LOC: HWLAB 10:36
PROVIDERS: ATTENDING PHYSICIAN Internal Medicine Hematology & Oncology; FAMILY PHYSICIAN Nurse Practitioner Family; REFERRING PHYSICIAN Nurse Practitioner Adult Health
DX: D69.6 Thrombocytopenia, unspecified (principal); C83.07 Small cell B-cell lymphoma, spleen; D80.1 Nonfamilial hypogammaglobulinemia
CPT/HCPCS: 36415; 80053; 82784; 85025

== ENCOUNTER → 2024-10-22 09:59 | Outpatient (REF) | payer OTHER, SELFPAY ==
[2024-10-22 12:23] LABS: Hematocrit 38.5 % (39.0-52.0); Hemoglobin 12.8 g/dL (13.0-18.0); Mean Corp Hgb Conc. 33.2 g/dL (33.0-37.0); Mean Corpuscular Volume 91.2 fL (80.0-94.0); Nucleated Red Blood Cells % 0 % (-); Platelet Count 86 10^3/uL (130-400); Red Cell Dist. Width 14.4 % (11.5-14.5)
[2024-10-22 12:42] LABS: ALT (SGPT) 45 U/L (0-50); AST (SGOT) 59 U/L (17-59); Albumin 4.3 g/dl (3.5-5.0); Alkaline Phosphatase 68 U/L (38-126); Blood Urea Nitrogen 22 mg/dl (9-20); Calcium 10.8 mg/dl (8.4-10.2); Carbon Dioxide 32 mmol/L (22-30); Chloride 103 mmol/L (98-107); Glucose 100 mg/dl (70-99); Potassium 4.1 mmol/L (3.5-5.1); Sodium 137 mmol/L (135-145); Total Protein 6.4 g/dl (6.3-8.2); eGFR > 60.00
== END ==
LOC: HWLAB 09:59
PROVIDERS: ATTENDING PHYSICIAN Internal Medicine Hematology & Oncology; FAMILY PHYSICIAN Nurse Practitioner Family
DX: D69.6 Thrombocytopenia, unspecified (principal); C83.07 Small cell B-cell lymphoma, spleen; R16.2 Hepatomegaly with splenomegaly, not elsewhere classified; D80.1 Nonfamilial hypogammaglobulinemia
CPT/HCPCS: 36415; 80053; 82784; 85025

== ENCOUNTER → 2024-11-19 12:17 | Outpatient (REF) | payer OTHER, SELFPAY ==
[2024-11-19 16:05] LABS: ALT (SGPT) 30 U/L (0-50); AST (SGOT) 25 U/L (17-59); Albumin 3.9 g/dl (3.5-5.0); Alkaline Phosphatase 92 U/L (38-126); Blood Urea Nitrogen 22 mg/dl (9-20); Calcium 9.6 mg/dl (8.4-10.2); Carbon Dioxide 32 mmol/L (22-30); Chloride 100 mmol/L (98-107); Glucose 104 mg/dl (70-99); Potassium 4.4 mmol/L (3.5-5.1); Sodium 134 mmol/L (135-145); Total Protein 6.3 g/dl (6.3-8.2); eGFR > 60.00
[2024-11-19 16:06] LABS: LDH 214 U/L (120-246); Uric Acid 3.4 mg/dl (3.5-8.5)
[2024-11-19 17:15] LABS: Hematocrit 35.9 % (39.0-52.0); Hemoglobin 11.7 g/dL (13.0-18.0); Mean Corp Hgb Conc. 32.6 g/dL (33.0-37.0); Mean Corpuscular Volume 92.8 fL (80.0-94.0); Nucleated Red Blood Cells % 0 % (-); Platelet Count 102 10^3/uL (130-400); Red Cell Dist. Width 13.6 % (11.5-14.5)
== END ==
LOC: HWLAB 12:17
PROVIDERS: ATTENDING PHYSICIAN Internal Medicine Hematology & Oncology; FAMILY PHYSICIAN Nurse Practitioner Family
DX: D69.6 Thrombocytopenia, unspecified (principal); C83.07 Small cell B-cell lymphoma, spleen; R16.2 Hepatomegaly with splenomegaly, not elsewhere classified; D80.1 Nonfamilial hypogammaglobulinemia
CPT/HCPCS: 36415; 80053; 82784; 83615; 84550; 85025

== ENCOUNTER → 2024-11-26 08:46 | Outpatient (REF) | payer OTHER, SELFPAY ==
[2024-11-26 09:10] VITALS: BP 143/84; BP_SYST 92
[2024-11-26] MEDS: ANCEF 10 IV (09:50)
[2024-11-26 10:59] VITALS: BP 123/79; BP_SYST 87
[2024-11-26 11:24] VITALS: BP 135/80
== END ==
LOC: RADI 08:46
PROVIDERS: ATTENDING PHYSICIAN Nurse Practitioner Adult Health; FAMILY PHYSICIAN Nurse Practitioner Family
DX: C83.07 Small cell B-cell lymphoma, spleen (principal); C83.33 Diffuse large B-cell lymphoma, intra-abdominal lymph nodes
CPT/HCPCS: 36561; 76937; 77001; 99152; 99153; C1788

== ENCOUNTER → 2024-12-01 10:43 | Outpatient (REF) | payer OTHER, SELFPAY ==
[2024-12-01 11:55] LABS: Hematocrit 38.7 % (39.0-52.0); Hemoglobin 13.0 g/dL (13.0-18.0); Mean Corp Hgb Conc. 33.6 g/dL (33.0-37.0); Mean Corpuscular Volume 91.5 fL (80.0-94.0); Nucleated Red Blood Cells % 0 % (-); Platelet Count 200 10^3/uL (130-400); Red Cell Dist. Width 17.1 % (11.5-14.5)
[2024-12-01 12:20] LABS: ALT (SGPT) 24 U/L (0-50); AST (SGOT) 30 U/L (17-59); Albumin 4.1 g/dl (3.5-5.0); Alkaline Phosphatase 87 U/L (38-126); Blood Urea Nitrogen 20 mg/dl (9-20); Calcium 9.7 mg/dl (8.4-10.2); Carbon Dioxide 31 mmol/L (22-30); Chloride 101 mmol/L (98-107); Glucose 97 mg/dl (70-99); LDH 245 U/L (120-246); Potassium 4.7 mmol/L (3.5-5.1); Sodium 136 mmol/L (135-145); Total Protein 6.4 g/dl (6.3-8.2); Uric Acid 3.1 mg/dl (3.5-8.5); eGFR > 60.00
== END ==
LOC: REG 10:43
PROVIDERS: ATTENDING PHYSICIAN Internal Medicine Hematology & Oncology; FAMILY PHYSICIAN Nurse Practitioner Family
DX: D69.6 Thrombocytopenia, unspecified (principal); C83.07 Small cell B-cell lymphoma, spleen; R16.2 Hepatomegaly with splenomegaly, not elsewhere classified; D80.1 Nonfamilial hypogammaglobulinemia
CPT/HCPCS: 36415; 80053; 83615; 84550; 85025

== ENCOUNTER → 2024-12-08 11:54 | Outpatient (REF) | payer OTHER, SELFPAY ==
[2024-12-08 12:19] LABS: Hematocrit 35.3 % (39.0-52.0); Hemoglobin 11.9 g/dL (13.0-18.0); Mean Corp Hgb Conc. 33.7 g/dL (33.0-37.0); Mean Corpuscular Volume 91.5 fL (80.0-94.0); Platelet Count 137 10^3/uL (130-400); Red Cell Dist. Width 17.1 % (11.5-14.5)
[2024-12-08 13:02] LABS: ALT (SGPT) 45 U/L (0-50); AST (SGOT) 24 U/L (17-59); Albumin 3.9 g/dl (3.5-5.0); Alkaline Phosphatase 104 U/L (38-126); Blood Urea Nitrogen 21 mg/dl (9-20); Calcium 9.6 mg/dl (8.4-10.2); Carbon Dioxide 33 mmol/L (22-30); Chloride 100 mmol/L (98-107); Glucose 111 mg/dl (70-99); Potassium 3.9 mmol/L (3.5-5.1); Sodium 137 mmol/L (135-145); Total Protein 6.0 g/dl (6.3-8.2); Uric Acid 3.6 mg/dl (3.5-8.5); eGFR > 60.00
[2024-12-08 13:08] LABS: Nucleated Red Blood Cells % 0 % (-)
[2024-12-08 13:49] LABS: LDH 233 U/L (120-246)
== END ==
LOC: REG 11:54
PROVIDERS: ATTENDING PHYSICIAN Internal Medicine Hematology & Oncology; FAMILY PHYSICIAN Nurse Practitioner Family
DX: D69.6 Thrombocytopenia, unspecified (principal); C83.07 Small cell B-cell lymphoma, spleen; R16.2 Hepatomegaly with splenomegaly, not elsewhere classified; D80.1 Nonfamilial hypogammaglobulinemia
CPT/HCPCS: 36415; 80053; 83615; 84550; 85025

== ENCOUNTER → 2024-12-13 11:24 | Outpatient (REF) | payer OTHER, SELFPAY ==
[2024-12-13 15:47] LABS: Hematocrit 38.8 % (39.0-52.0); Hemoglobin 12.8 g/dL (13.0-18.0); Mean Corp Hgb Conc. 33.0 g/dL (33.0-37.0); Mean Corpuscular Volume 94.2 fL (80.0-94.0); Nucleated Red Blood Cells % 0 % (-); Platelet Count 130 10^3/uL (130-400); Red Cell Dist. Width 16.9 % (11.5-14.5)
[2024-12-13 15:53] LABS: ALT (SGPT) 34 U/L (0-50); AST (SGOT) 33 U/L (17-59); Albumin 4.0 g/dl (3.5-5.0); Alkaline Phosphatase 91 U/L (38-126); Blood Urea Nitrogen 18 mg/dl (9-20); Calcium 9.5 mg/dl (8.4-10.2); Carbon Dioxide 32 mmol/L (22-30); Chloride 100 mmol/L (98-107); Glucose 110 mg/dl (70-99); LDH 214 U/L (120-246); Potassium 3.9 mmol/L (3.5-5.1); Sodium 134 mmol/L (135-145); Total Protein 7.0 g/dl (6.3-8.2); Uric Acid 4.9 mg/dl (3.5-8.5); eGFR > 60.00
== END ==
LOC: HWLAB 11:24
PROVIDERS: ATTENDING PHYSICIAN Internal Medicine Hematology & Oncology; FAMILY PHYSICIAN Nurse Practitioner Family
DX: D69.6 Thrombocytopenia, unspecified (principal); C83.07 Small cell B-cell lymphoma, spleen; R16.2 Hepatomegaly with splenomegaly, not elsewhere classified; D80.1 Nonfamilial hypogammaglobulinemia
CPT/HCPCS: 36415; 80053; 83615; 84550; 85025

== ENCOUNTER → 2024-12-21 09:46 | Outpatient (REF) | payer OTHER, SELFPAY ==
[2024-12-21 11:29] LABS: Hematocrit 38.9 % (39.0-52.0); Hemoglobin 13.3 g/dL (13.0-18.0); Mean Corp Hgb Conc. 34.2 g/dL (33.0-37.0); Mean Corpuscular Volume 91.1 fL (80.0-94.0); Nucleated Red Blood Cells % 0 % (-); Platelet Count 163 10^3/uL (130-400); Red Cell Dist. Width 17.2 % (11.5-14.5)
[2024-12-21 11:42] LABS: ALT (SGPT) 28 U/L (0-50); AST (SGOT) 33 U/L (17-59); Albumin 4.2 g/dl (3.5-5.0); Alkaline Phosphatase 84 U/L (38-126); Blood Urea Nitrogen 22 mg/dl (9-20); Calcium 9.8 mg/dl (8.4-10.2); Carbon Dioxide 28 mmol/L (22-30); Chloride 102 mmol/L (98-107); Glucose 102 mg/dl (70-99); LDH 245 U/L (120-246); Potassium 4.3 mmol/L (3.5-5.1); Sodium 135 mmol/L (135-145); Total Protein 6.9 g/dl (6.3-8.2); Uric Acid 4.2 mg/dl (3.5-8.5); eGFR > 60.00
== END ==
LOC: HWLAB 09:46
PROVIDERS: ATTENDING PHYSICIAN Internal Medicine Hematology & Oncology; FAMILY PHYSICIAN Nurse Practitioner Family
DX: D69.6 Thrombocytopenia, unspecified (principal); C83.07 Small cell B-cell lymphoma, spleen; D80.1 Nonfamilial hypogammaglobulinemia
CPT/HCPCS: 36415; 80053; 82784; 83615; 84550; 85025

== ENCOUNTER → 2024-12-28 13:26 | Outpatient (REF) | payer OTHER, SELFPAY ==
[2024-12-28 16:13] LABS: ALT (SGPT) 34 U/L (0-50); AST (SGOT) 29 U/L (17-59); Albumin 4.2 g/dl (3.5-5.0); Alkaline Phosphatase 118 U/L (38-126); Blood Urea Nitrogen 22 mg/dl (9-20); Calcium 10.0 mg/dl (8.4-10.2); Carbon Dioxide 31 mmol/L (22-30); Chloride 97 mmol/L (98-107); Glucose 119 mg/dl (70-99); LDH 253 U/L (120-246); Potassium 4.2 mmol/L (3.5-5.1); Sodium 132 mmol/L (135-145); Total Protein 6.6 g/dl (6.3-8.2); Uric Acid 2.9 mg/dl (3.5-8.5); eGFR > 60.00
[2024-12-28 16:36] LABS: Hematocrit 36.3 % (39.0-52.0); Hemoglobin 12.3 g/dL (13.0-18.0); Mean Corp Hgb Conc. 33.9 g/dL (33.0-37.0); Mean Corpuscular Volume 94.0 fL (80.0-94.0); Platelet Count 101 10^3/uL (130-400); Red Cell Dist. Width 17.8 % (11.5-14.5)
[2024-12-28 16:37] LABS: Nucleated Red Blood Cells % 0 % (-)
[2024-12-28 16:38] LABS: Anisocytosis 2+; Hypochromasia Moderate; Macrocytosis 1+; Microcytosis 1+; Normal RBC Morphology No
[2024-12-28 16:39] LABS: Hypersegmented Neutrophil 2+
== END ==
LOC: HWLAB 13:26
PROVIDERS: ATTENDING PHYSICIAN Internal Medicine Hematology & Oncology; FAMILY PHYSICIAN Nurse Practitioner Family
DX: D69.6 Thrombocytopenia, unspecified (principal); C83.07 Small cell B-cell lymphoma, spleen; R16.2 Hepatomegaly with splenomegaly, not elsewhere classified; D80.1 Nonfamilial hypogammaglobulinemia
CPT/HCPCS: 36415; 80053; 83615; 84550; 85025

== ENCOUNTER → 2025-01-03 10:12 | Outpatient (REF) | payer OTHER, SELFPAY ==
[2025-01-03 12:36] LABS: Hematocrit 36.9 % (39.0-52.0); Hemoglobin 12.1 g/dL (13.0-18.0); Mean Corp Hgb Conc. 32.8 g/dL (33.0-37.0); Mean Corpuscular Volume 99.5 fL (80.0-94.0); Nucleated Red Blood Cells % 0 % (-); Platelet Count 116 10^3/uL (130-400); Red Cell Dist. Width 17.9 % (11.5-14.5)
[2025-01-03 13:05] LABS: ALT (SGPT) 35 U/L (0-50); AST (SGOT) 28 U/L (17-59); Albumin 4.1 g/dl (3.5-5.0); Alkaline Phosphatase 88 U/L (38-126); Blood Urea Nitrogen 15 mg/dl (9-20); Calcium 9.4 mg/dl (8.4-10.2); Carbon Dioxide 31 mmol/L (22-30); Chloride 102 mmol/L (98-107); Glucose 86 mg/dl (70-99); LDH 197 U/L (120-246); Potassium 4.3 mmol/L (3.5-5.1); Sodium 135 mmol/L (135-145); Total Protein 6.4 g/dl (6.3-8.2); Uric Acid 3.4 mg/dl (3.5-8.5); eGFR > 60.00
== END ==
LOC: HWLAB 10:12
PROVIDERS: ATTENDING PHYSICIAN Internal Medicine Hematology & Oncology; FAMILY PHYSICIAN Nurse Practitioner Family
DX: D69.6 Thrombocytopenia, unspecified (principal); C83.07 Small cell B-cell lymphoma, spleen; R16.2 Hepatomegaly with splenomegaly, not elsewhere classified; D80.1 Nonfamilial hypogammaglobulinemia
CPT/HCPCS: 36415; 80053; 83615; 84550; 85025

== ENCOUNTER → 2025-01-11 13:04 | Outpatient (REF) | payer OTHER, SELFPAY ==
[2025-01-11 15:33] LABS: Hematocrit 37.3 % (39.0-52.0); Hemoglobin 12.5 g/dL (13.0-18.0); Mean Corp Hgb Conc. 33.5 g/dL (33.0-37.0); Mean Corpuscular Volume 95.6 fL (80.0-94.0); Nucleated Red Blood Cells % 0 % (-); Platelet Count 140 10^3/uL (130-400); Red Cell Dist. Width 17.5 % (11.5-14.5)
[2025-01-11 15:40] LABS: ALT (SGPT) 26 U/L (0-50); AST (SGOT) 36 U/L (17-59); Albumin 4.1 g/dl (3.5-5.0); Alkaline Phosphatase 75 U/L (38-126); Blood Urea Nitrogen 20 mg/dl (9-20); Calcium 9.8 mg/dl (8.4-10.2); Carbon Dioxide 30 mmol/L (22-30); Chloride 100 mmol/L (98-107); Glucose 95 mg/dl (70-99); LDH 218 U/L (120-246); Potassium 4.3 mmol/L (3.5-5.1); Sodium 133 mmol/L (135-145); Total Protein 6.9 g/dl (6.3-8.2); Uric Acid 2.7 mg/dl (3.5-8.5); eGFR > 60.00
== END ==
LOC: HWLAB 13:04
PROVIDERS: ATTENDING PHYSICIAN Internal Medicine Hematology & Oncology; FAMILY PHYSICIAN Nurse Practitioner Family
DX: D69.6 Thrombocytopenia, unspecified (principal); C83.07 Small cell B-cell lymphoma, spleen; R16.2 Hepatomegaly with splenomegaly, not elsewhere classified; D80.1 Nonfamilial hypogammaglobulinemia
CPT/HCPCS: 36415; 80053; 82784; 83615; 84550; 85025

== ENCOUNTER → 2025-01-17 10:47 | Outpatient (REF) | payer OTHER, SELFPAY ==
[2025-01-17 11:57] LABS: Hematocrit 35.5 % (39.0-52.0); Hemoglobin 11.9 g/dL (13.0-18.0); Mean Corp Hgb Conc. 33.5 g/dL (33.0-37.0); Mean Corpuscular Volume 99.4 fL (80.0-94.0); Red Cell Dist. Width 17.6 % (11.5-14.5)
[2025-01-17 12:13] LABS: ALT (SGPT) 25 U/L (0-50); AST (SGOT) 26 U/L (17-59); Albumin 4.0 g/dl (3.5-5.0); Alkaline Phosphatase 103 U/L (38-126); Blood Urea Nitrogen 25 mg/dl (9-20); Calcium 9.8 mg/dl (8.4-10.2); Carbon Dioxide 32 mmol/L (22-30); Chloride 102 mmol/L (98-107); Glucose 109 mg/dl (70-99); LDH 259 U/L (120-246); Potassium 4.2 mmol/L (3.5-5.1); Sodium 136 mmol/L (135-145); Total Protein 6.5 g/dl (6.3-8.2); Uric Acid 3.4 mg/dl (3.5-8.5); eGFR > 60.00
[2025-01-17 16:31] LABS: Platelet Count 74 10^3/uL (130-400)
[2025-01-17 16:34] LABS: Absolute Neutrophils -Man Diff 24.8 10^3/uL (1.4-6.5); Normal RBC Morphology Yes; Platelets Checked Yes; Total Cells Counted 100
== END ==
LOC: REG 10:47
PROVIDERS: ATTENDING PHYSICIAN Internal Medicine Hematology & Oncology
DX: D69.6 Thrombocytopenia, unspecified (principal); C83.07 Small cell B-cell lymphoma, spleen; R16.2 Hepatomegaly with splenomegaly, not elsewhere classified; D80.1 Nonfamilial hypogammaglobulinemia
CPT/HCPCS: 36415; 80053; 83615; 84550; 85025

== ENCOUNTER → 2025-01-24 13:33 | Outpatient (REF) | payer OTHER, SELFPAY ==
[2025-01-24 14:32] LABS: Hematocrit 36.1 % (39.0-52.0); Hemoglobin 11.9 g/dL (13.0-18.0); Mean Corp Hgb Conc. 33.0 g/dL (33.0-37.0); Mean Corpuscular Volume 100.0 fL (80.0-94.0); Nucleated Red Blood Cells % 0 % (-); Platelet Count 129 10^3/uL (130-400); Red Cell Dist. Width 16.4 % (11.5-14.5)
[2025-01-24 14:58] LABS: ALT (SGPT) 27 U/L (0-50); AST (SGOT) 30 U/L (17-59); Albumin 4.1 g/dl (3.5-5.0); Alkaline Phosphatase 82 U/L (38-126); Blood Urea Nitrogen 20 mg/dl (9-20); Calcium 9.5 mg/dl (8.4-10.2); Carbon Dioxide 31 mmol/L (22-30); Chloride 104 mmol/L (98-107); Glucose 102 mg/dl (70-99); LDH 195 U/L (120-246); Potassium 4.2 mmol/L (3.5-5.1); Sodium 136 mmol/L (135-145); Total Protein 6.5 g/dl (6.3-8.2); Uric Acid 3.7 mg/dl (3.5-8.5); eGFR > 60.00
== END ==
LOC: REG 13:33
PROVIDERS: ATTENDING PHYSICIAN Internal Medicine Hematology & Oncology; FAMILY PHYSICIAN Nurse Practitioner Family
DX: D69.6 Thrombocytopenia, unspecified (principal); C83.07 Small cell B-cell lymphoma, spleen; R16.2 Hepatomegaly with splenomegaly, not elsewhere classified; D80.1 Nonfamilial hypogammaglobulinemia
CPT/HCPCS: 36415; 80053; 83615; 84550; 85025

== ENCOUNTER → 2025-01-31 10:50 | Outpatient (REF) | payer OTHER, SELFPAY ==
[2025-01-31 12:30] LABS: ALT (SGPT) 26 U/L (0-50); AST (SGOT) 35 U/L (17-59); Albumin 4.3 g/dl (3.5-5.0); Alkaline Phosphatase 66 U/L (38-126); Blood Urea Nitrogen 20 mg/dl (9-20); Calcium 9.9 mg/dl (8.4-10.2); Carbon Dioxide 31 mmol/L (22-30); Chloride 102 mmol/L (98-107); Glucose 96 mg/dl (70-99); LDH 224 U/L (120-246); Potassium 4.3 mmol/L (3.5-5.1); Sodium 136 mmol/L (135-145); Total Protein 6.7 g/dl (6.3-8.2); Uric Acid 3.7 mg/dl (3.5-8.5); eGFR > 60.00
[2025-01-31 14:32] LABS: Hematocrit 36.9 % (39.0-52.0); Hemoglobin 12.8 g/dL (13.0-18.0); Mean Corp Hgb Conc. 34.7 g/dL (33.0-37.0); Mean Corpuscular Volume 95.1 fL (80.0-94.0); Nucleated Red Blood Cells % 0 % (-); Platelet Count 167 10^3/uL (130-400); Red Cell Dist. Width 15.8 % (11.5-14.5)
== END ==
LOC: REG 10:50
PROVIDERS: ATTENDING PHYSICIAN Internal Medicine Hematology & Oncology; FAMILY PHYSICIAN Nurse Practitioner Family
DX: D69.6 Thrombocytopenia, unspecified (principal); C83.07 Small cell B-cell lymphoma, spleen; R16.2 Hepatomegaly with splenomegaly, not elsewhere classified; D80.1 Nonfamilial hypogammaglobulinemia
CPT/HCPCS: 36415; 80053; 83615; 84550; 85025

== ENCOUNTER → 2025-02-08 13:07 | Outpatient (REF) | payer OTHER, SELFPAY ==
[2025-02-08 15:09] LABS: ALT (SGPT) 31 U/L (0-50); AST (SGOT) 31 U/L (17-59); Albumin 4.1 g/dl (3.5-5.0); Alkaline Phosphatase 78 U/L (38-126); Blood Urea Nitrogen 22 mg/dl (9-20); Calcium 9.5 mg/dl (8.4-10.2); Carbon Dioxide 30 mmol/L (22-30); Chloride 101 mmol/L (98-107); Glucose 119 mg/dl (70-99); LDH 260 U/L (120-246); Potassium 3.9 mmol/L (3.5-5.1); Sodium 137 mmol/L (135-145); Total Protein 6.9 g/dl (6.3-8.2); Uric Acid 3.4 mg/dl (3.5-8.5); eGFR > 60.00
== END ==
LOC: REG 13:07
PROVIDERS: ATTENDING PHYSICIAN Internal Medicine Hematology & Oncology; FAMILY PHYSICIAN Nurse Practitioner Family
DX: D69.6 Thrombocytopenia, unspecified (principal); C83.07 Small cell B-cell lymphoma, spleen; R16.2 Hepatomegaly with splenomegaly, not elsewhere classified; D80.1 Nonfamilial hypogammaglobulinemia
CPT/HCPCS: 36415; 80053; 83615; 84550

== ENCOUNTER → 2025-02-09 09:12 | Outpatient (REF) | payer OTHER, SELFPAY ==
[2025-02-09 10:32] LABS: Hematocrit 34.8 % (39.0-52.0); Hemoglobin 11.8 g/dL (13.0-18.0); Mean Corp Hgb Conc. 33.9 g/dL (33.0-37.0); Mean Corpuscular Volume 102.1 fL (80.0-94.0); Platelet Count 61 10^3/uL (130-400); Red Cell Dist. Width 14.8 % (11.5-14.5)
[2025-02-09 11:02] LABS: Absolute Neutrophils -Man Diff 25.1 10^3/uL (1.4-6.5); Normal RBC Morphology Yes; Platelets Checked Yes; Total Cells Counted 100
== END ==
LOC: REG 09:12
PROVIDERS: ATTENDING PHYSICIAN Internal Medicine Hematology & Oncology
DX: D69.6 Thrombocytopenia, unspecified (principal); C83.07 Small cell B-cell lymphoma, spleen; D80.1 Nonfamilial hypogammaglobulinemia
CPT/HCPCS: 36415; 85025

== ENCOUNTER → 2025-02-14 10:39 | Outpatient (REF) | payer OTHER, SELFPAY | LOC: HWRCS 10:39 | PROVIDERS: ATTENDING PHYSICIAN Internal Medicine; FAMILY PHYSICIAN Nurse Practitioner Family | DX: I10 Essential (primary) hypertension (principal); C85.10 Unspecified B-cell lymphoma, unspecified site | CPT/HCPCS: 93306 ==

== ENCOUNTER → 2025-02-15 09:30 | Outpatient (REF) | payer OTHER, SELFPAY ==
[2025-02-15 12:59] LABS: Hematocrit 34.6 % (39.0-52.0); Hemoglobin 11.8 g/dL (13.0-18.0); Mean Corp Hgb Conc. 34.1 g/dL (33.0-37.0); Mean Corpuscular Volume 100.9 fL (80.0-94.0); Nucleated Red Blood Cells % 0 % (-); Platelet Count 98 10^3/uL (130-400); Red Cell Dist. Width 14.1 % (11.5-14.5)
[2025-02-15 13:45] LABS: ALT (SGPT) 26 U/L (0-50); AST (SGOT) 33 U/L (17-59); Albumin 3.9 g/dl (3.5-5.0); Alkaline Phosphatase 80 U/L (38-126); Blood Urea Nitrogen 17 mg/dl (9-20); Calcium 9.2 mg/dl (8.4-10.2); Carbon Dioxide 29 mmol/L (22-30); Chloride 104 mmol/L (98-107); Glucose 95 mg/dl (70-99); LDH 197 U/L (120-246); Potassium 4.0 mmol/L (3.5-5.1); Sodium 137 mmol/L (135-145); Total Protein 6.5 g/dl (6.3-8.2); Uric Acid 4.0 mg/dl (3.5-8.5); eGFR > 60.00
== END ==
LOC: HWLAB 09:30
PROVIDERS: ATTENDING PHYSICIAN Internal Medicine Hematology & Oncology; FAMILY PHYSICIAN Nurse Practitioner Family
DX: D69.6 Thrombocytopenia, unspecified (principal); C83.07 Small cell B-cell lymphoma, spleen; R16.2 Hepatomegaly with splenomegaly, not elsewhere classified; D80.1 Nonfamilial hypogammaglobulinemia
CPT/HCPCS: 36415; 80053; 83615; 84550; 85025

== ENCOUNTER → 2025-02-23 08:47 | Outpatient (REF) | payer OTHER, SELFPAY ==
[2025-02-23 12:05] LABS: Hematocrit 36.7 % (39.0-52.0); Hemoglobin 12.6 g/dL (13.0-18.0); Mean Corp Hgb Conc. 34.3 g/dL (33.0-37.0); Mean Corpuscular Volume 100.5 fL (80.0-94.0); Nucleated Red Blood Cells % 0 % (-); Platelet Count 173 10^3/uL (130-400); Red Cell Dist. Width 14.5 % (11.5-14.5)
[2025-02-23 12:28] LABS: ALT (SGPT) 26 U/L (0-50); AST (SGOT) 36 U/L (17-59); Albumin 4.1 g/dl (3.5-5.0); Alkaline Phosphatase 88 U/L (38-126); Blood Urea Nitrogen 23 mg/dl (9-20); Calcium 9.3 mg/dl (8.4-10.2); Carbon Dioxide 26 mmol/L (22-30); Chloride 104 mmol/L (98-107); Glucose 96 mg/dl (70-99); Potassium 4.2 mmol/L (3.5-5.1); Sodium 137 mmol/L (135-145); Total Protein 6.4 g/dl (6.3-8.2); eGFR > 60.00
[2025-02-23 14:10] LABS: LDH 233 U/L (120-246); Uric Acid 3.7 mg/dl (3.5-8.5)
== END ==
LOC: HWLAB 08:47
PROVIDERS: ATTENDING PHYSICIAN Internal Medicine Hematology & Oncology; FAMILY PHYSICIAN Nurse Practitioner Family
DX: D69.6 Thrombocytopenia, unspecified (principal); C83.07 Small cell B-cell lymphoma, spleen; R16.2 Hepatomegaly with splenomegaly, not elsewhere classified; D80.1 Nonfamilial hypogammaglobulinemia
CPT/HCPCS: 36415; 80053; 82784; 83615; 84550; 85025